=== PATIENT | female | born 2000 | race Caucasian/White ===

== ENCOUNTER 2022-04-16 19:22 | Emergency (ER) | payer OTHER, SELFPAY ==
[2022-04-16 19:39] VITALS: BP 157/93; PULSE 122; RESP 18; O2SAT 98
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
--- OUTSIDE RECORDS SUMMARY | 2022-04-16 19:54 | XMS_ITS | Continuity of Care Document ---
:2000 Demographics Address [address] [place] [address] Email Address Preferred Language so
--- OUTSIDE RECORDS SUMMARY | 2022-04-16 19:55 | XMS_ITS | Continuity of Care Document ---
:2000 Author
--- OUTSIDE RECORDS SUMMARY | 2022-04-16 19:55 | XMS_ITS | Continuity of Care Document ---
:2000 Author Organization [facility] Address [address] [place] [address]- Care Team Providers Name Role Phone Susan Trejo NP Primary Care Physician Encounter [facility] Date(s): 05/24/21 - 06/23/21 [facility] [address] [place], [place] [address] Attending Physician: Admtr, Ar8 Admitting Physician: Admtr, Ar8 Referring Physician: Admtr, Ar8 Allergies, Adverse Reactions, Alerts Substance Reaction Severity Status
--- OUTSIDE RECORDS SUMMARY | 2022-04-16 19:55 | XMS_ITS | Continuity of Care Document ---
:2000 Author Organization [facility] Address [address] [place] [address]-
== END 2022-04-16 23:01 | disposition home or self-care (01) ==
PROVIDERS: Emergency Provider Emergency Medicine
DX: Z77.21 Contact with and (suspected) exposure to potentially hazardous body fluids (principal); R06.02 Shortness of breath
CPT/HCPCS: 71046; 99282; 99283

== ENCOUNTER → 2022-06-22 09:48 | Outpatient (BNVA) | payer SELFPAY | DX: Z13.89 Encounter for screening for other disorder (principal) ==

== ENCOUNTER 2024-07-26 09:08 | Outpatient (AMB) | payer OTHER, SELFPAY ==
[2024-07-26 09:17] VITALS: BP 122/78; PULSE 89; TEMP 37.2; O2SAT 98; BMI 35.0
--- NOTE | 2024-07-26 09:17 | MHC.OFFWIV ---
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 Notes some drainage. Sound is muffled No fevers or chill. No dizziness. No sore throat PFSH Social History Patient Tobacco Use Status: Never used Tobacco Review of Systems Const Details: See HPI Physical Exam Vital Signs: Last Vital Signs Temp 98.9 F 07/26/24 09:17 Pulse 89 07/26/24 09:17 BP 122/78 07/26/24 09:17 Pulse Ox 98 07/26/24 09:17 Oxygen Delivery Method Room Air 07/26/24 09:17 BMI result Body Mass Index 35.0 Const General: no acute distress and well developed Nutritional Appearance: well nourished Orientation/consciousness: patient oriented x3 HEENT Other: Left TM normal Right TM: Some obstruction with cerumen however visualization is not completely obstructed. She has a rim of pus at inferior aspect of TM. Small clot at about 01:00 o'clock and this is likely a perforation which is already healing. Head: Yes normocephalic and Yes atraumatic Eyes General: appearance normal, both eyes and all related structures Pupils: Equal, round and reactive pupils present EOM: EOMs intact bilaterally Resp Effort & Inspection: normal respiratory effort Auscultation: clear to auscultation bilaterally Cardio Rate: regular rate Rhythm: regular rhythm Heart sounds: S1 normal heart sound present, S2 normal heart sound present, no gallops, no murmurs and no rubs Neuro General: patient oriented x3 and gait normal Cranial nerves: Yes Equal, round and reactive pupils present Psych Affect: normal affect Assessment & Plan Assessment & Plan (1) Right otitis media: Code(s): H66.91 - Otitis media, unspecified, right ear Plan: Right otitis media with small perforation at 01:00 o'clock This has already sealed over with small clot Also has a fair amount of wax on TM though not completely obstructing view and some pus at inferior rim of TM. No evidence of external ear infection Patient is allergic to penicillin Sending a script for Z-Adrian If not resolved she can follow-up with her PCP Medications: New azithromycin (Zithromax Z-Adrian) take 500 mg today (day 1), then 250 mg for 4 days (days 2-5) PO 5 days 6 tabs 0RF Discontinued fluconazole (Diflucan) Discontinued Reason: Patient Completed Course 150 mg PO Q3D 2 tabs 0RF Coding Level of Care Code New Pt Level 3 (07802) Diagnoses Right otitis media H66.91
== END 2024-07-26 11:53 | disposition home or self-care (01) ==
PROVIDERS: Visit Provider Family Medicine
DX: H66.91 Otitis media, unspecified, right ear (principal)

== ENCOUNTER → 2024-07-26 09:08 | Outpatient (BNVA) | payer OTHER, SELFPAY | PROVIDERS: Visit Provider Family Medicine | DX: H66.91 Otitis media, unspecified, right ear (principal) | CPT/HCPCS: 99202 ==

== ENCOUNTER 2024-08-14 21:06 | Emergency (ER) | payer OTHER, SELFPAY ==
[2024-08-14 21:11] VITALS: BP 159/94; PULSE 127; RESP 18; TEMP 37; O2SAT 96; BMI 36.4
[2024-08-14 21:57] LABS: MANUAL DIFF FLAG NO
[2024-08-14 22:08] LABS: Basophils Percent Auto 0.3 % (0-2); Eosinophils Absolute Auto 0.1 X10*3/uL (0.0-0.4); Eosinophils Percent Auto 0.8 % (0-4); Hematocrit 40.8 % (37.0-47.0); Hemoglobin 13.7 g/dl (12.0-16.0); Imm Gran Abs Auto 0.03 X10*3/uL (0.00-0.03); Imm Gran Pct Auto 0.3 % (0.0-0.4); Lymphocytes Absolute Auto 3.5 X10*3/uL (1.2-4.9); Mean Corpuscular HGB Conc 33.6 g/dl (31.0-35.0); Mean Corpuscular Hemoglobin 28.6 pg (27.0-33.0); Mean Corpuscular Volume 85.2 fL (80.0-98.0); Mean Platelet Volume 9.2 fL (9.4-12.3); Monocytes Absolute Auto 0.7 X10*3/uL (0.1-1.2); Monocytes Percent Auto 6.9 % (2-11); Neutrophils Absolute Auto 5.5 x10*3/uL (2.0-8.3); Neutrophils Percent Auto 55.7 % (45-73); Platelet Count 281 X10*3/uL (160-400); Red Blood Count 4.79 X10*6/uL (4.20-5.50); Red Cell Distribution Width 12.6 % (11.0-16.0); White Blood Count 9.8 X10*3/uL (4.8-10.8)
[2024-08-14 22:12] LABS: Alanine Aminotransferase 18 U/L (0-31); Albumin Level 4.3 g/dL (3.5-5.0); Alkaline Phosphatase 63 U/L (39-117); Anion Gap 10 (12-20); Aspartate Amino Transferase 23 U/L (5-31); Bilirubin Total 0.2 mg/dL (0.0-1.0); Blood Urea Nitrogen 14 mg/dL (9-16); Calcium 9.7 mg/dL (8.4-10.2); Carbon Dioxide 23 mmol/L (22-29); Chloride 110 mmol/L (96-108); Creatinine Clr Calc Pharmacy 132.9; Estimated Glomerular Filt Rate > 60; Glucose Random 118 mg/dL (60-115); Potassium 3.7 mmol/L (3.3-5.1); Sodium 139 mmol/L (135-145); Total Protein 7.4 g/dL (6.5-8.0)
[2024-08-14 22:42] VITALS: BP 148/90; PULSE 118; RESP 18; TEMP 36.9; O2SAT 98
[2024-08-14] MEDS: Ondansetron ODT 4 MG TAB.RAPDIS TRANSLINGU (22:43)
--- NOTE | 2024-08-14 22:44 | PC.NURSE ---
pt noted to be actively vomiting in waiting room. vitals obtained/wnl aside from remaining tachycardic. one time dose of zofran ordered/administered. effectiveness pending. pt back out to waiting room - waiting for bed assignment.
--- NOTE | 2024-08-15 01:02 | PC.NURSE ---
pt left from [facility] @0045 did not want to wait any longer to be seen. no active nose bleed noted.
--- OUTSIDE RECORDS SUMMARY | 2024-08-15 01:14 | XMS_ITS | Encounter Summary ---
Author Organization [facility] Address [address] [place] [address] Phone Care Team Providers Care Manager Crisis Name Role Phone Wen Brunson NP Primary Care Provider [phone] Encounter Details Date Type Department Care Team (Late st Contact Info) Description 02/14/2017 Conversion Encounter [facility] - [address], [address] [place] [address] Wen Brunson NP [address] [place] [address] Social History Tobacco Use Types Packs/Day Years Used Date Smoking Tobacco: Never Assessed Comments Unknown Sex and Gender Information Value Date Recorded Sex Assigned at Not on file Legal Sex Female 10:43 PM EST Gender Identity Not on file Sexual Orientation Not on file documented as of this encounter Plan of Treatment Not on file documented as of this encounter Visit Diagnoses Not on filedocumented in this encounter Care Teams Manager Crisis Relationship Specialty Start Date End Date Wen Brunson NP [address] [place] [address] PCP - General 08/29/16 09/07/20 documented as of this encounter
--- OUTSIDE RECORDS SUMMARY | 2024-08-15 01:14 | XMS_ITS | Encounter Summary ---
Author Organization [facility] Address [address] [place] [address] Phone Care Team Providers Care Database Consultant Name Role Phone Wen Brunson NP Primary Care Provider [phone] Reason for Visit * Reason Comments Med Refill Encounter Details Date Type Department Care Team (Late st Contact Info) Description 09/18/2017 Refill [facility] - [place] [address] [place] [address] Wen Brunson NP [address] [place] [address] Migraine with aura and without status migrainosus, not intractable Social History Tobacco Use Types Packs/Day Years Used Date Smoking Tobacco: Never Assessed Comments Unknown Sex and Gender Information Value Date Recorded Sex Assigned at Not on file Legal Sex Female 10:43 PM EST Gender Identity Not on file Sexual Orientation Not on file documented as of this encounter Plan of Treatment Not on file documented as of this encounter Visit Diagnoses Diagnosis Migraine with aura and without status migrainosus, not intractable documented in this encounter Care Teams Database Consultant Relationship Specialty Start Date End Date Wen Brunson NP [address] [place] [address] PCP - General 08/29/16 09/07/20 documented as of this encounter
--- OUTSIDE RECORDS SUMMARY | 2024-08-15 01:14 | XMS_ITS | Encounter Summary ---
Author Organization [facility] Address [address] [place] [address] Phone Care Team Providers Care Structural Architect Name Role Phone Wen Brunson ASSISTANT ACCOUNT EXECUTIVE Primary Care Provider [phone] Reason for Visit * Reason Comments Med Refill Encounter Details Date Type Department Care Team (Late st Contact Info) Description 07/27/2019 Refill [facility] - [place] [address] [place] [address] Wen Brunson NP [address] [place] [address] Acute maxillary sinusitis, recurrence not specified Social History Tobacco Use Types Packs/Day Years Used Date Smoking Tobacco: Never Smokeless Tobacco: Never Alcohol Use Standard Drinks/Week Comments No 0 (1 standard drink = 0.6 oz pure alcohol) max 1 drink 2 times a month, never driving. Hunger/Food Answer Date Recorded No 07/27/2018 Stable Housing Answer Date Recorded No 07/11/2019 Transportation Concerns Answer Date Rec orded No 07/27/2018 Hazards in Home Answer Date Recorded No 07/27/2018 Financing Utilities Answer Date Recorde d No 07/27/2018 Safety at Home Answer Date Recorded No 07/27/2018 Outside Support Answer Date Recorded No 07/27/2018 Understanding Health Concerns Answer Da te Recorded No 07/27/2018 Financing Health Concerns Answer Date R ecorded No 07/27/2018 Missing School or Work Answer Date Gagan rded No 07/27/2018 Comments No Sex and Gender Information Value Date Recorded Sex Assigned at Not on file Legal Sex Female 10:43 PM EST Gender Identity Not on file Sexual Orientation Not on file documented as of this encounter Plan of Treatment Not on file documented as of this encounter Visit Diagnoses Diagnosis Acute maxillary sinusitis, recurrence not specified documented in this encounter Care Teams Structural Architect Relationship Specialty Start Date End Date Wen Brunson NP [address] [place] [address] PCP - General 08/29/16 09/07/20 documented as of this encounter
--- OUTSIDE RECORDS SUMMARY | 2024-08-15 01:14 | XMS_ITS | Encounter Summary ---
Author Organization [facility] Address [address] [place] [address] Phone Care Team Providers Care Mold Cleaning And Storage Supervisor Name Role Phone Wen Brunson NP Primary Care Provider [phone] Reason for Visit * Reason Comments Med Refill Encounter Details Date Type Department Care Team (Late st Contact Info) Description 01/28/2018 Refill [facility] - [place] [address] [place] [address] Wen Brunson NP [address] [place] [address] Dysmenorrhea Social History Tobacco Use Types Packs/Day Years Used Date Smoking Tobacco: Never Assessed Comments Unknown Sex and Gender Information Value Date Recorded Sex Assigned at Not on file Legal Sex Female 10:43 PM EST Gender Identity Not on file Sexual Orientation Not on file documented as of this encounter Plan of Treatment Not on file documented as of this encounter Visit Diagnoses Diagnosis Dysmenorrhea documented in this encounter Care Teams Mold Cleaning And Storage Supervisor Relationship Specialty Start Date End Date Wen Brunson NP [address] [place] [address] PCP - General 08/29/16 09/07/20 documented as of this encounter
--- OUTSIDE RECORDS SUMMARY | 2024-08-15 01:14 | XMS_ITS | Encounter Summary ---
Author Organization [facility] Address [address] [place] [address] Phone Care Team Providers Care Peoplesoft Programmer Name Role Phone Wen Brunson COTTON GIN YARD SUPERVISOR Primary Care Provider [phone] Reason for Visit * Reason Onset Date Comments Med Refill-needs medcheck 08/17/2019 Encounter Details Date Type Department Care Team (Late st Contact Info) Description 08/17/2019 Refill [facility] - [place] [address] [place] [address] Wen Brunson NP [address] [place] [address] Migraine with aura and without status migrainosus, [...] on file documented as of this encounter Miscellaneous Notes * Telephone Encounter - Yocasta Pride - 09/15/2019 2:17 PM EDT Patient scheduled for 09/25/19 with MP * Telephone Encounter - Yocasta Pride - 09/08/2019 3:42 PM EST Left message to schedule med check * Telephone Encounter - Yocasta Pride - 08/27/2019 9:31 AM EST Left message for patient to schedule med check with MP * Telephone Encounter - Wen Brunson NP - 08/18/2019 5:45 AM EST Rx sent but please call patient and schedule medcheck in the next month, thank you documented in this encounter Plan of Treatment Not on file documented as of this encounter Visit Diagnoses Diagnosis Migraine with aura and without status migrainosus, not intractable documented in this encounter Care Teams Peoplesoft Programmer Relationship Specialty Start Date End Date Wen Brunson NP [address] [place] [address] PCP - General 08/29/16 09/07/20 documented as of this encounter
--- OUTSIDE RECORDS SUMMARY | 2024-08-15 01:14 | XMS_ITS | Encounter Summary ---
Author Organization [facility] Address [address] [place] [address] Phone Care Team Providers Care Taker Off Drying Kiln Name Role Phone Wen Brunson SPOOLER OPERATOR AUTOMATIC Primary Care Provider [phone] Reason for Visit * Reason Comments Med Refill Encounter Details Date Type Department Care Team ([facility] st Contact Info) Description 12/31/2019 Refill [facility] - [place] [address] [place] [address] Wen Brunson NP [address] [place] [address] Anxiety Social History Tobacco Use Types Packs/Day Years [...] encounter Miscellaneous Notes * Telephone Encounter - Tova Kirkland - 01/01/2020 2:43 PM EDT Called and spoke to patient. Advised her EKG order has been placed. Gave her [facility] scheduling [phone]. Order faxed to [phone] Patient states she will call and schedule FYI to MP * Telephone Encounter - Wen Brunson NP - 12/31/2019 5:56 AM EDT Please call patient and let her know she is due for her annual EKG-she needs this b/c she is on both amitriptyline and fluoxetine. Order in chart. Please coordinate this happening-(help her get appointment, fax order etc etc) thank you documented in this encounter Plan of Treatment Not on file documented as of this encounter Visit Diagnoses Diagnosis Anxiety Anxiety state, unspecified documented in this encounter Care Teams Taker Off Drying Kiln Relationship Specialty Start Date End Date Wen Brunson NP [address] [place] [address] PCP - General 08/29/16 09/07/20 documented as of this encounter
--- OUTSIDE RECORDS SUMMARY | 2024-08-15 01:14 | XMS_ITS | Encounter Summary ---
Author Organization [facility] Address [address] [place] [address] Phone Care Team Providers Care Automat Car Attendant Name Role Phone Unavailable Primary Care Provider Unavailabl e Reason for Visit * Reason Comments Med Refill Encounter Details Date Type Department Care Team ([facility] st Contact Info) Description 09/12/2020 Refill [facility] - [place] [address] [place] [address] Wen Brunson, ANGELES [address] [place] [address] Anxiety Social History Tobacco Use Types Packs/Day Years Used Date Smoking Tobacco: Never Smokeless Tobacco: Never Alcohol Use Standard Drinks/Week Comments No 0 (1 standard drink = 0.6 oz pure alcohol) max 1 drink 2 times a month, never driving. Hunger/Food Answer Date Recorded In the last 12 months, did y ou or your family ever eat less than you felt you should because there wasn't enough money for food? No 02/12/2020 Stable Housing Answer Date Recorded Are you worried that in the next 2 months you may not have stable housing? No 02/12/2020 Transportation Concerns Answer Date Rec orded In the last 12 months, have you or your family ever had to go without healthcare because you didn't have a way to get there? No 02/12/2020 Hazards in Home Answer Date Recorded Think about the place you li ve. Do you have problems with any of the following? Pests (mice or roaches), mold, no/not working smoke detectors, water leaks, no window guards. No 2019 Financing Utilities Answer Date Recorde d In the last 12 months, has t he electric, gas, oil, or water company threatened to shut off your services in your home? No 02/12/2020 Safety at Home Answer Date Recorded Are you or your family worried about feeling saf e in your home? No 02/12/2020 Outside Support Answer Date Recorded Do you feel that you need mo re support from other people or programs to help you care for yourself or your family? No 02/12/2020 Understanding Health Concerns Answer Da te Recorded Do you need help understandi ng your or your child's healthcare needs (diagnosis, medications, plan, etc.)? No 02/12/2020 Financing Health Concerns Answer Date R ecorded In the last 12 months, was t here a time when your child needed to see a doctor or get medications or supplies but could not because of cost? No 02/12/2020 Missing School or Work Answer Date Gagan rded Did you or your child miss s chool or work because of a health problem that could have been avoided? No 02/12/2020 Comments No Sex and Gender Information Value [...]
--- OUTSIDE RECORDS SUMMARY | 2024-08-15 01:14 | XMS_ITS | Encounter Summary ---
Author Organization [facility] Address [address] [place] [address] Phone Care Team Providers Care Electric Shovel Operator Name Role Phone Wen Brunson NP Primary Care Provider [phone] Reason for Visit * Reason Comments Med Refill Encounter Details Date Type Department Care Team (Late st Contact Info) Description 07/11/2018 Refill [facility] - [place] [address] [place] [address] Wen Brunson NP [address] [place] [address] Dysmenorrhea; Migraine with aura and without status migrainosus, not intractable Social History Tobacco Use Types Packs/Day Years Used Date Smoking Tobacco: Never Smokeless Tobacco: Never Alcohol Use Standard Drinks/Week Comments No 0 (1 standard drink = 0.6 oz pur e alcohol) Comments No Sex and Gender Information Value Date Recorded Sex Assigned at Not on file Legal Sex Female 10:43 PM EST Gender Identity Not on file Sexual Orientation Not on file documented as of this encounter Plan of Treatment Not on file documented as of this encounter Visit Diagnoses Diagnosis Dysmenorrhea Migraine with aura and without status migrainosus, not intractable documented in this encounter Care Teams Electric Shovel Operator Relationship Specialty Start Date End Date Wen Brunson NP [address] [place] [address] PCP - General 08/29/16 09/07/20 documented as of this encounter
--- OUTSIDE RECORDS SUMMARY | 2024-08-15 01:14 | XMS_ITS | Encounter Summary ---
Author Organization [facility] Address [address] [place] [address] Phone Care Team Providers Care Aircraft Rigging And Controls Mechanic Name Role Phone Wen Brunson NP Primary Care Provider [phone] Reason for Visit * Reason Comments Med Refill Encounter Details Date Type Department Care Team (Late st Contact Info) Description 09/30/2017 Refill [facility] - [place] [address] [place] [address] Wen Brunson NP [address] [place] [address] Dysmenorrhea Social History Tobacco Use Types Packs/Day [...] Dysmenorrhea documented in this encounter Care Teams Aircraft Rigging And Controls Mechanic Relationship Specialty Start Date End Date Wen Brunson NP [address] [place] [address] PCP - General 08/29/16 09/07/20 documented as of this encounter
--- OUTSIDE RECORDS SUMMARY | 2024-08-15 01:14 | XMS_ITS | Encounter Summary ---
Author Organization [facility] Address [address] [place] [address] Phone Care Team Providers Care Flower Pot Press Operator Name Role Phone Unavailable Primary Care Provider Unavailabl e Reason for Visit * Reason Comments Med Refill Encounter Details Date Type Department Care Team ([facility] st Contact Info) Description 05/24/2021 Refill [facility] - [place] [address] [place] [address] Wen Brunson, ANGELES [address] [place] [address] Migraine with aura and without status migrainosus, [...]
--- OUTSIDE RECORDS SUMMARY | 2024-08-15 01:14 | XMS_ITS | Encounter Summary ---
Author Organization [facility] Address [address] [place] [address] Phone Care Team Providers Care Ebd Special Education Teacher Name Role Phone Wen Brunson AEROPLANE PILOT Primary Care Provider Reason for Visit * Reason Comments Med Refill Encounter Details Date Type Department Care Team (Late st Contact Info) Description 12/08/2018 Refill [facility] - [place] [address] [place] [address] Wen Brunson NP [address] [place] [address] DUB (dysfunctional uterine bleeding) Social History Tobacco Use Types Packs/Day Years Used Date Smoking Tobacco: Never Smokeless Tobacco: Never Alcohol Use Standard Drinks/Week Comments No 0 (1 standard drink = 0.6 oz pur e alcohol) Hunger/Food Answer Date Recorded No 07/27/2018 Stable Housing Answer Date Recorded 0 07/27/2018 Transportation Concerns Answer Date Rec orded No [...] as of this encounter Visit Diagnoses Diagnosis DUB (dysfunctional uterine bleeding) Other disorder of menstruation and other abnormal bleeding from female genital tract documented in this encounter Care Teams Ebd Special Education Teacher Relationship Specialty Start Date End Date Wen Brunson NP [address] [place] [address] PCP - General 08/29/16 09/07/20 documented as of this encounter
--- OUTSIDE RECORDS SUMMARY | 2024-08-15 01:14 | XMS_ITS | Encounter Summary ---
Author Organization [facility] Address [address] [place] [phone] Phone Care Team Providers Care Vallez Filter Operator Name Role Phone Wen Brunson RAT EXTERMINATOR Primary Care Provider [phone] Reason for Visit * Reason Comments Med Refill Encounter Details Date Type Department Care Team (Late st Contact Info) Description 12/08/2019 Refill [facility] - [place] [address] [place] [address] Wen Brunson NP [address] [place] [address] Dysmenorrhea Social History Tobacco Use Types Packs/Day [...] Dysmenorrhea documented in this encounter Care Teams Vallez Filter Operator Relationship Specialty Start Date End Date Wen Brunson NP [address] [place] [address] PCP - General 08/29/16 09/07/20 documented as of this encounter
--- OUTSIDE RECORDS SUMMARY | 2024-08-15 01:14 | XMS_ITS | Encounter Summary ---
Author Organization [facility] Address [address] [place] [address] Phone Care Team Providers Care Electrolysis Engineer Name Role Phone Wen Brunson TEACHER DANCING Primary Care Provider [phone] Reason for Visit * Reason Comments Med Refill Encounter Details Date Type Department Care Team (Late st Contact Info) Description 06/13/2018 Refill [facility] - [place] [address] [place] [address] Wen Brunson NP [address] [place] [address] Migraine with aura and without status migrainosus, [...] intractable documented in this encounter Care Teams Electrolysis Engineer Relationship Specialty Start Date End Date Wen Brunson NP [address] [place] [address] PCP - General 08/29/16 09/07/20 documented as of this encounter
--- OUTSIDE RECORDS SUMMARY | 2024-08-15 01:14 | XMS_ITS | Encounter Summary ---
Author Organization [facility] Address [address] [place] [address] Phone Care Team Providers Care Teacher Drama Name Role Phone Wen Brunson MACHINE ADJUSTER HELPER Primary Care Provider [phone] Reason for Visit * Reason Onset Date Comments Med Refill-needs medcheck 09/17/2019 Encounter Details Date Type Department Care Team (Late st Contact Info) Description 09/17/2019 Refill [facility] - [place] [address] [place] [address] Wen Brunson NP [address] [place] [address] Migraine with aura and without status migrainosus, [...] * Telephone Encounter - Yocasta Pride - 09/17/2019 11:26 AM EDT Patient is scheduled for a med check 09/25/19 * Telephone Encounter - Wen Brunson NP - 09/17/2019 10:36 AM EDT Needs medcheck-got eR request for amitriptyline, I sent 1month RF but needs medcheck soon, thank you documented in this encounter Plan of Treatment Not on file documented as of this encounter Visit Diagnoses Diagnosis Migraine with aura and without status migrainosus, not intractable documented in this encounter Care Teams Teacher Drama Relationship Specialty Start Date End Date Wen Brunson NP [address] [place] [address] PCP - General 08/29/16 09/07/20 documented as of this encounter
--- OUTSIDE RECORDS SUMMARY | 2024-08-15 01:14 | XMS_ITS | Encounter Summary ---
Author Organization [facility] Address [address] [place] [phone] Phone Care Team Providers Care Senior Financial Reporting Accountant Name Role Phone Wen Brunson NP Primary Care Provider [phone] Reason for Visit * Reason Onset Date Comments Med Refill-needs medcheck 10/09/2017 LMOM 10/10/2017 Mailed Postcard 10/16/2017 Encounter Details Date Type Department Care Team (Late st Contact Info) Description 10/09/2017 Refill [facility] - [place] [address] [place] [address] Wen Brunson NP [address] [place] [address] Dysmenorrhea Social History Tobacco Use Types Packs/Day Years Used Date Smoking Tobacco: Never Assessed Comments Unknown Sex and Gender Information Value Date Recorded Sex Assigned at Not on file Legal Sex Female 10:43 PM EST Gender Identity Not on file Sexual Orientation Not on file documented as of this encounter Miscellaneous Notes * Telephone Encounter - Wen Brunson NP - 10/10/2017 6:08 AM EDT Got eRF request for fluoxetine. I have not seen her in a long time, will send 1 month with 1 ELENO umanachealfa with me to continue this med, thank you documented in this encounter Plan of Treatment Not on file documented as of this encounter Visit Diagnoses Diagnosis Dysmenorrhea documented in this encounter Care Teams Senior Financial Reporting Accountant Relationship Specialty Start Date End Date Wen Brunson NP [address] [place] [address] PCP - General 08/29/16 09/07/20 documented as of this encounter
--- OUTSIDE RECORDS SUMMARY | 2024-08-15 01:14 | XMS_ITS | Clinical Summary ---
Author Organization [facility] Address [address] [place] [address] Phone Care Team Providers Care Manager Clinical Services Name Role Phone Unavailable Primary Care Provider Unavailabl e Allergies Active Allergy Reactions Criticality Noted Date Comments Environmental Postive Skin test/Positive RAST 06/14/2017 Trees, weeds,grass, dust, mold Penicillin V Rash,GI intolerance Medium 03/23/2019 Facial swelling and rash Medications Pediatric Multiple Vit-C-FA (MULTIVITAMIN CHILDRENS PO) Take 1 tablet by mouth daily. Active albuterol (2.5 MG/3ML) 0.083% nebulizer solutionIndicati ons:Moderate persistent asthma with exacerbation Take 3 mL (2.5 mg total) by nebulization every 4 (four) hours as needed for wheezing or shortness of breath. 90 mL 0 Active mometasone-formo terol (Dulera) 200-5 MCG/ACT inhalerIndicatio ns:Mild intermittent asthma with exacerbation Inhale 2 puffs 2 (two) times a day. Rinse mouth with water after use, do not swallow. 13 g 3 0 Active albuterol HFA (Proventil HFA) 108 (90 Base) MCG/ACT inhalerIndicatio ns:Exercise-anam jamilah asthma Inhale 2 puffs every 4 (four) hours as needed for wheezing. 1 Units 0 Active medroxyPROGESTER one Acetate 150 MG/ML suspension prefilled syringeIndicatio ns:Dysmenorrhea Inject 150 mg into the muscle every 3 (three) months. 1 Syringe 1 Active mirtazapine 15 MG tablet Take 15 mg by mouth nightly. 1 Active buPROPion SR 100 MG 12 hr tablet Take 100 mg by mouth every morning. 1 Active Adderall XR 5 MG 24 hr capsule Take 10 mg by mouth every morning. 1 Active Adderall XR 20 MG 24 hr capsule 1 Active amitriptyline 10 MG tabletIndication s:Migraine with aura and without status migrainosus, not intractable Take one tablet by mouth every day at bedtime 30 tablet 2 1 Active Active Problems Problem Noted Date Diagnosed Date Gluten intolerance 04/18/2020 Penicillin allergy 03/23/2019 Overview (03/23/2019): Vomiting and facial rash/swelling BMI (body mass index), pediatric, 95-99% for age 0701/23/2019 Overview (01/23/2019): Discussed diet and excerise, will check screening labs Dysmenorrhea 02/21/2018 Assessment & Plan (02/17/2020 1:27 PM EDT): Getting depo-provera. Doing well since not getting period any more. Moderate persistent asthma 02/14/2018 Overview (02/14/2018): Diagnosed by Dr Ortiz Assessment & Plan (02/17/2020 1:26 PM EDT): On Dulera 2p bid per report of 09/2019. Not seeing Dr. Ortiz anymore. Doing well on Dulera and occasional albuterol Anxiety 05/24/2015 Overview (08/03/2020): Needs annual EKG while on fluoxetine and amitriptylline per psychiatrist, 09/2018-EKG normal, 03/12/20-normal EKG 07/2020-admitted to [facility] program for thoughts of self harm, starting therapy at [facility], started on Wellbutrin 100mg QD Assessment & Plan (02/17/2020 1:35 PM EDT): Seeing Amber Alfredo. On fluoxetine 30 mg (20 + 10 mg) and amitriptyline 10 mg qhs. Doing better with anxiety since increased to 30 mg in 09/2019 Migraine with aura and witho ut status migrainosus, not intractable 05/24/2015 Overview (08/22/2017): On Amitryptilline Assessment & Plan (02/17/2020 1:28 PM EDT): On amitriptyline 10 mg qhs and doing well w/o headaches Assessment & Plan (08/22/2017 6:55 PM EST): Current migraine with aura x 3d, not improving with supportive care. Dx status migrainosis, will do a short course of prednisone to abort. 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 Ortiz anymore. Doing well on Dulera and occasional albuterol Immunizations Immunization Administration Dates Next Due DTaP 02/01/2005, 3,2001,06/13,2001 HPV, Quadrivalent 03/23/2014,06/24/2013,03/17/20 13 Hep A, ped/adol 10/14/2019,10/03/2018 Hep B, ped/adol 2001,2001,2001 Hib (PRP-T) 05/07/2002, 2,2001,04/19 IPV 02/01/2005, 2,2001,04/19 Influenza 05/28/2009 Influenza, injectable, quadr ivalent, preservative free 02/09/2020,07/15/2019,04/30/2018,05/04,04/06/2016 Influenza, intranasal, quadrivalent 04/21/2015,0 03/23/2014,03/17/2013 Influenza, intranasal, trivalent 03/13/2012,04/09 MMR 02/05/2006,05/07/2002 Meningococcal Conj (Menactra) MCV4P 04/30/2018,0 03/13/2012 Pneumococcal Conjugate 02/01/2005,2001,06/2001 Tdap 03/13/2012 Typhoid 10/15/2018 Varicella 02/06/2008,02/05/2002 Family History Relation Name Status Comments Father Alive Father's Sister Paternal Aun t: Child-onset diabetes [DM type 1], Eye disease Maternal Grandfather Materna l Uncle: Premature , Skin disorder Maternal Grandmother Alive Mother Alive Mother: Celiac Disease Paternal Grandfather Pat GFa ther: Cancer, Cholesterol or lipid elevation Paternal Grandmother Pat GMo ther: Cholesterol or lipid elevation Social History Tobacco Use Types Packs/Day Years [...] on file Sexual Orientation Not on file Last Filed Vital Signs Vital Sign Reading Time Taken Comments Blood Pressure 116/81 07/21/2020 4:12 PM EST Pulse 109 07/21/2020 4:12 PM EST Temperature 36.4 ??C (97.6 ??F) 04/15/2020 1:57 PM ED T Respiratory Rate 32 06/26/2018 4:43 PM EST Oxygen Saturation 97% 06/26/2018 4:43 PM EST Inhaled Oxygen Concentration - - Weight 105 kg (231 lb 9.6 oz) 07/21/2020 4:12 PM EST Height 171.2 cm (5' 7.4 ) 06/02/2020 4:19 PM EST Body Mass Index 35.84 06/02/2020 4:19 PM EST Plan of Treatment Health Maintenance Due Date Last Done Comments Consider Men B Vaccine (1 of 2 - Bexsero 2-dose series) 2017 Men B Vaccine (1 of 2 - Standard) 2017 DTaP,Tdap,and Td Vaccines (7 - Td or Tdap) 03/13/2022 03/13/2012, 02/01/2005, 07/30/2002, Additional history exists Influenza Vaccines (#1) 2024 02/09/20, 07/15/2019, 04/30/2018, Additional history exists COVID-19 Vaccine ( - 2023-2 5 season) 2024 Hepatitis B Vaccines Completed 2001, 2001, 2001 HIB Vaccines Completed 05/07/2002, 08/10, 2001, Additional history exists IPV Vaccines Completed 02/01/2005, 07/10, 2001, Additional history exists Pneumococcal Vaccine Completed 02/01/2005, 2001, 2001 MMR Vaccines Completed 02/05/2006, 05/07/2002 Varicella Vaccines Completed 02/06/2008, 02/05/2002 HPV Vaccines Completed 03/23/2014, 06/08, 03/17/2013 Meningococcal Vaccine Completed 04/30/2018, 012 Hepatitis A Vaccines Completed 10/14/2019, 10/04/19 19 Procedures * Due to [place] [employer] law, this organization might not be sharing sensitive test results. Procedure Name Priority Date/Time Associated Diagnosis Comments CHLAMYDIA AND GONORRHEA, AMPLIFIED Routine 01/23/2019 11:01 AM EDT Irregular menses from Last 3 Months or Most Recently Relevant to Health Maintenance Results * Due to [place] [employer] law, this organization might not be sharing sensitive test results. * Chlamydia and Gonorrhoea, Amplified (01/23/2019 11:01 AM EDT) Chlamydia trachomatis RNA, TMA Not Detected Not Detected 01/24/2019 10:48 AM EDT [facility] Neisseria gonorrhoeae, SHELLY Not Detected Not Detected 01/24/2019 10:48 AM EDT [facility] Specimen Type URINE 01/24/2019 10:48 AM EDT [facility] Urine 01/23/2019 11:0 1 AM EDT 01/23/2019 12:20 PM EDT us Charity Marcum MD LAB MICROBIOLOGY - GENERAL ORD ERABLES Final Result [facility] from Last 3 Months or Most Recently Relevant to Health Maintenance Insurance [facility] NON PCC [facility]
--- OUTSIDE RECORDS SUMMARY | 2024-08-15 01:14 | XMS_ITS | Encounter Summary ---
Author Organization [facility] Address [address] [place] [address] Phone Care Team Providers Care Assembly Stock Supervisor Name Role Phone Wen Brunson ELECTRICAL SERVICE TECHNICIAN Primary Care Provider [phone] Reason for Visit * Reason Onset Date Comments Med Refill 08/09/2020 Encounter Details Date Type Department Care Team (Late st Contact Info) Description 08/09/2020 Refill [facility] - [place] [address] [place] [address] Wen Brunson NP [address] [place] [address] Dysmenorrhea Social History Tobacco Use Types Packs/Day [...] encounter Miscellaneous Notes * Telephone Encounter - Ruchi Moe LPN - 08/10/2020 9:07 AM EST Refill requested for Jackie???s: medroxyPROGESTERone Acetate 150 mg/ML Refill request source: [employer] This medication was last refilled on 05/24/20. An office visit is not recommended. To be faxed electronically. [facility]/pharmacy #[id number] - [place], [place] - [address] [facility] [address] [facility] [address] PCP: Wen Brunson NP documented in this encounter Plan of Treatment Not on file documented as of this encounter Visit Diagnoses Diagnosis Dysmenorrhea documented in this encounter Care Teams Assembly Stock Supervisor Relationship Specialty Start Date End Date Wen Brunson NP [address] [place] [address] PCP - General 08/29/16 09/07/20 documented as of this encounter
== END 2024-08-15 01:12 | disposition left against medical advice (07) ==
LOC: HO.ED 08-15 01:12
PROVIDERS: Emergency Provider Emergency Medicine
DX: R04.0 Epistaxis (principal); Z79.899 Other long term (current) drug therapy
CPT/HCPCS: 36415; 80053; 85025; 99281; 99282